=== PATIENT | male | born 1990 | race American Indian/Alaskan Native ===

== ENCOUNTER 2016-10-05 13:00 | Emergency (ER) | payer MEDICAID ==
--- NOTE | 2016-10-05 13:38 | EDM.PDOC ---
ED HPI GENERAL MEDICAL PROBLEM - General Chief Complaint: Back Pain or Injury Stated Complaint: BACK PAIN, FELL FROM HORSE Time Seen by Provider: 10/05/16 13:17 Source of Information: Reports: Patient History Limitations: Reports: No Limitations - History of Present Illness INITIAL COMMENTS - FREE TEXT/NARRATIVE: 25-year-old male presents for evaluation and treatment of injuries sustained from a horse accident. Patient reports that the injuries occurred on . He states that he was bucked off a full-grown horse. He states that he landed on his neck and his occipital region of his head. He does not believe he lost consciousness but says he was "close to losing consciousness." Reports no syncopal episodes since the injury. He is currently complaining of neck pain, pain to his mid and lower back. Also reports periodic numbness and tingling to the right hand that resolves with opening and closing the hand. He reports that he had some visual disturbances initially after being bucked off but denies any current headaches, nausea, vomiting, blurry vision, double vision, chest pain, shortness of breath, abdominal pain, lightheadedness or dizziness or syncope. Patient is currently complaining of neck pain, thoracic and lumbar spine pain. trauma alert minor called due to time period since injury and patient was able to walk in. cervical collar applies immediately upon my inspection. Middle Back Pain Score (Numeric/FACES): 8 - Related Data Allergies Allergy/AdvReac Type Severity Reaction Status Date / Time No Known Allergies Allergy Verified 10/05/16 13:13 Home Meds: Home Meds oxyCODONE HCl/Acetaminophen [Percocet 5-325 mg Tablet] 1 each PO Q6HR PRN #20 tablet 10/05/16 [Rx] Past Medical History - Past Health History Medical/Surgical History: Denies Medical/Surgical History Social & Family History - Tobacco Use Smoking Status *Q: Current Every Day Smoker Years of Tobacco use: 5 Packs/Tins Daily: 0.5 - Recreational Drug Use Recreational Drug Use: No Review of Systems - Review of Systems Review Of Systems: See Below Eyes: Denies: Blurred Vision, Vision Change Respiratory: Denies: Shortness of Breath Cardiovascular: Denies: Chest Pain GI/Abdominal: Denies: Abdominal Pain Musculoskeletal: Reports: Neck Pain (lateral ), Back Pain (mid to lower back) Neurological: Reports: Numbness (right hand), Tingling (right hand). Denies: Headache, Syncope, Difficulty Walking ED EXAM, GENERAL - Physical Exam Exam: See Below Exam Limited By: No Limitations General Appearance: Alert, WD/WN, No Apparent Distress Eye Exam: Bilateral Eye: EOMI, PERRL Ears: Normal External Exam Nose: Normal Inspection, No Blood Throat/Mouth: Normal Inspection, Normal Voice, No Airway Compromise Head: Atraumatic, Normocephalic Neck: Normal Inspection, Tender Lateral (bilateral), Other (c collar applied upon my evaluation) Respiratory/Chest: No Respiratory Distress, Lungs Clear, Normal Breath Sounds Cardiovascular: Normal Peripheral Pulses, Regular Rate, Rhythm, No Murmur Peripheral Pulses: 2+: Radial (L), Radial (R), Posterior Tibial (L), Posterior Tibial (R), Dorsalis Pedis (L), Dorsalis Pedis (R) GI/Abdominal: Normal Bowel Sounds, Soft, Non-Tender Back Exam: Normal Inspection, Vertebral Tenderness (t4-t9) Extremities: Normal Inspection, Normal Range of Motion, Non-Tender, Normal Capillary Refill Neurological: Alert, Oriented, CN II-XII Intact, Normal Cognition, Normal Gait, No Motor/Sensory Deficits, Other (GCS 15) Psychiatric: Normal Affect, Normal Mood Skin Exam: Warm, Dry, Normal Color Course - Vital Signs Last Recorded V/S: Last Vital Signs Temp 36.5 C 10/05/16 13:13 Pulse 76 10/05/16 17:35 Resp 16 10/05/16 17:35 BP 136/75 10/05/16 17:35 Pulse Ox 98 10/05/16 17:35 - Orders/Labs/Meds Orders: Active Orders 24 hr Category Date Time Status Cervical Spine wo Cont [CT] Stat Exams 10/05/16 13:31 Taken Chest Abdomen Pelvis w Cont [CT] Stat Exams 10/05/16 13:31 Taken Head wo Cont [CT] Stat Exams 10/05/16 13:31 Taken Lumbar Spine wo Cont [CT] Stat Exams 10/05/16 13:31 Taken Thoracic Spine wo Cont [CT] Stat Exams 10/05/16 13:31 Taken Labs: Laboratory Tests 10/05/16 10/05/16 10/05/16 Range/Units 15:00 15:00 15:00 WBC 7.48 (4.23-9.07) K/mm3 RBC 4.72 (4.63-6.08) M/mm3 Hgb 15.6 (13.7-17.5) gm/L Hct 44.9 (40.1-51.0) % MCV 95.1 H (79.0-92.2) fl MCH 33.1 H (25.7-32.2) pg MCHC 34.7 (32.2-35.5) g/dl RDW Std Deviation 42.4 (35.1-43.9) fL Plt Count 196 (163-337) K/mm3 MPV 9.9 (9.4-12.3) fl Neut % (Auto) 51.5 (34.0-67.9) % Lymph % (Auto) 33.8 (21.8-53.1) % [place] % (Auto) 10.4 (5.3-12.2) % Eos % (Auto) 3.7 (0.8-7.0) Baso % (Auto) 0.5 (0.1-1.2) % Neut # (Auto) 3.84 (1.78-5.38) K/mm3 Lymph # (Auto) 2.53 (1.32-3.57) K/mm3 [place] # (Auto) 0.78 (0.30-0.82) K/mm3 Eos # (Auto) 0.28 (0.04-0.54) K/mm3 Baso # (Auto) 0.04 (0.01-0.08) K/mm3 PT 10.4 (8.0-13.0) SECONDS INR 0.96 APTT 31 (22-36) SECONDS Sodium 136 (136-145) mEq/L Potassium 3.8 (3.5-5.1) mEq/L Chloride 101 (98-107) mEq/L Carbon Dioxide 28 (21-32) mEq/L Anion Gap 10.8 (5-15) BUN 12 (7-18) mg/dL Creatinine 1.0 (0.7-1.3) mg/dL Est Cr Clr Drug Dosing 133.58 mL/min Estimated GFR (MDRD) > 60 (>60) mL/min BUN/Creatinine Ratio 12.0 L (14-18) Glucose 109 H (74-106) mg/dL Calcium 8.3 L (8.5-10.1) mg/dL Total Bilirubin 0.5 (0.2-1.0) mg/dL AST 35 (15-37) U/L ALT 43 (16-63) U/L Alkaline Phosphatase 92 (46-116) U/L Total Protein 7.0 (6.4-8.2) g/dl Albumin 3.7 (3.4-5.0) g/dl Globulin 3.3 gm/dL Albumin/Globulin Ratio 1.1 (1-2) Meds: Medications Discontinued Medications Generic Name Dose Route Start Last Admin Trade Name Freq PRN Reason Stop Dose Admin Iopamidol 125 ml 10/05/16 14:05 10/05/16 14:34 Isovue-300 (61%) IVPUSH 10/05/16 14:06 125 ml ONETIME ONE Administration Oxycodone/Acetaminophen 1 tab 10/05/16 14:54 10/05/16 15:01 Percocet 325-5 Mg PO 10/05/16 14:55 1 tab ONETIME ONE Administration Sodium Chloride 10 ml 10/05/16 14:05 10/05/16 14:34 Saline Flush FLUSH 10 ml ONETIME PRN Administration IV FLUSH - Radiology Interpretation Free Text/Narrative:: CT of the head without contrast impression per [facility]: Small left epidural hematoma near the coronal suture and frontal parietal area. The hematoma measures about 15mm in AP diameter by about 5mm in width. There is no associated mass effect or midline shift. 2. Left scalp hematoma overlying the epidural hematoma. These is no associated skull fracture. Ct of the cervical spine without contrast impression per [facility]: no acute findings. CT of the thoracic spine without contrast impression per [facility]: spinous process fractures T5-T7 CT of the lumbar spine without contrast impression per [facility]: No evidence for acute posttraumatic abnormality spondylotis with mild stenosis L1-l2. No evidence for fractrure. CT of the abdomen and pelvis with IV contrast impression per [facility]: No evidence of acute postraumatic abnormality in the abdomen or pelvis. CT of the chest wih IV contrast impression per [facility]: Spinous process fractures T5-T7. No additional acute fractures seen. CT Results Date: 10/05/16 - Re-Assessments/Exams Free Text/Narrative Re-Assessment/Exam: 10/05/14 16:55 C-collar removed around 16:00 after clearance from radiology reports. I spoke with Dr. Del Rosario, neurosurgery at [facility] in [place]. He was unable to see the CTs during our conservation. He will evaluate the images and notify me of any concerns. Given he is 2 days out from the injury felt the bleed had likely subsided and would likely require a follow-up CT scan in one week. Did not feel transfer was likely necessary. 10/05/16 17:[address] Del Rosario, neurosurgery at [facility] in [place]. He has reviewed the images. No transfer necessary. Recommended follow-up CT in one week. No running, strenout activity, etc x one week. No NSAIDS, aspinin, ibuprofen, etc. Narcotics for thoracic spine fractures. Back brace as tolerated to reduce movement and help the spinout fractures heal. I discussed my conservation with Dr. Del Rosario with the patient. It is my preference he be admitted to the hospital for observation. The patient [place] about [place] away near [facility]. He states he cannot do that. He is and 4 children and one of them is disabled. He is hesitant to even take off work. I will have him follow-up in clinic this week for a repeat CT scan and a check of his symptoms. Plan will be to discharge home. He was warned of warning signs and instructed to return to the ER immediately should he experience any of these. Percocet for the spinous process fractures, back brace from [employer], follow-up friday. No work. 10/05/16 18:10 Phone numbers for [facility]: land line [phone]; cell [phone] Departure - Departure Time of Disposition: 17:34 Disposition: Home, Self-Care 01 Condition: Fair Clinical Impression: Epidural hematoma Fracture of spinous process of thoracic vertebra Qualifiers: Encounter type: initial encounter Fracture type: closed Qualified Code(s): S22.008A - Other fracture of unspecified thoracic vertebra, initial encounter for closed fracture - Discharge Information Prescriptions: oxyCODONE HCl/Acetaminophen [Percocet 5-325 mg Tablet] 1 each PO Q6HR PRN #20 tablet PRN Reason: Pain Instructions: Hematoma, [id number] Referrals: PCP,None [Primary Care Provider] - Jose Alfredo Tineo PA-C [Physician [employer]] - Forms: ED Department Discharge, Return to Work/School Form Additional Instructions: You were given medication in the ER that can affect your ability to drive and operate machinery. No driving or operating machinery within taking 12 hours of narcotic pain medication. Call [phone] on Friday to schedule an outpatient CT of the head without contrast and a follow-up appointment with family medicine. Recommend Dr. Colby or Jose Alfredo Tineo PA-C. An outpatient order has been provided for you to have this CT. No ibuprofen, aspirin, NSAIDs until further notice. note given for work. No work until cleared by family med. No running, strenuous activity, etc. until cleared by family medicine. Rest and take it easy. 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 Try [employer] for the [employer], [employer] or [employer]. Percocet 1 tab every 4-6 hours as needed for severe pain. may take over-the- counter Tylenol as needed for less severe pain. Do not take more than 4 g of Tylenol from all sources in [address] or operate machinery within 12 hours of taking Percocet. Percocet can be habit-forming, I recommend you take as few of these as needed to control your pain. Please return to the ER immediately if your symptoms change or worsen. In particular we would like to see you back immediately for seizures, headaches, vomiting, vision changes, change in demeanor, speech or gait, or any other concerning symptom. - My Orders Last 24 Hours: My Active Orders 10/05/16 13:31 Cervical Spine wo Cont [CT] Stat Chest Abdomen Pelvis w Cont [CT] Stat Head wo Cont [CT] Stat Lumbar Spine wo Cont [CT] Stat Thoracic Spine wo Cont [CT] Stat - Assessment/Plan Last 24 Hours: My Active Orders 10/05/16 13:31 Cervical Spine wo Cont [CT] Stat Chest Abdomen Pelvis w Cont [CT] Stat Head wo Cont [CT] Stat Lumbar Spine wo Cont [CT] Stat Thoracic Spine wo Cont [CT] Stat
[2016-10-05] MEDS ORDERED: Sodium Chloride 0.9% 10 ML Syringe FLUSH PRN (14:05)
[2016-10-05] MEDS ORDERED: Iopamidol 612 MG/ML 150 ML Bottle IVPUSH ONE (14:05)
[2016-10-05] MEDS ORDERED: Acetaminophen/oxyCODONE 325-5 MG Tab PO ONE (14:54)
[2016-10-05 17:36] VITALS: BP 136/75
--- NOTE | 2016-10-06 15:28 | CT ---
Head CT Technique: Multiple axial sections through the brain were obtained. Intravenous contrast was not utilized. Findings: Ventricles along with basal cisterns and sulci over the convexities are within normal limits for the patient's age. Minimal extra-axial soft tissue density is seen at the junction of the posterior frontal and anterior parietal region. Difficult to exclude a very minimal epidural hematoma measuring about 1.5 x 5 mm. No other abnormal parenchymal densities are seen. No other findings of intracranial hemorrhage. No midline shift or mass effect is seen. Minimal scalp hematoma is also seen at the frontal parietal junction on the left side. Bone window settings were reviewed which show no acute calvarial abnormality. Visualized sinuses are clear. Impression: 1. Equivocal findings for very minimal epidural hematoma at the junction of the left frontal parietal region. 2. Small scalp hematoma on the left side. 3. No additional abnormality is identified on noncontrast head CT exam. Diagnostic code #5 I agree with preliminary report issued by [facility] ([facility] report finalized on 10/05/16, 4:28 PM Central Time)
--- NOTE | 2016-10-06 15:53 | CT ---
CT cervical spine Technique: Multiple axial sections were obtained from above C1 inferiorly to the bottom of T2. Reconstructed sagittal and coronal images were reviewed. Comparison: No previous study. Findings: Mastoid sinuses and middle ear cavities are clear. Posterior skull base is intact. Vertebral body heights and disc spaces are maintained. Detached bony density which appears old is seen off the tip of the spinous process of C7. No acute fracture is seen. No bony central or bony neural foraminal stenosis is seen. No abnormal subluxation is seen on the reconstructed sagittal images. Impression: 1. Incidental finding as noted above. 2. No acute abnormality is identified on CT study of the cervical spine. Diagnostic code #2 I agree with preliminary report issued by [facility] ([facility] report finalized on 10/05/16, 4:38 PM Central Time)
--- NOTE | 2016-10-06 15:53 | CT ---
CT lumbar spine Technique: Multiple axial sections through the lumbar spine were obtained. Comparison: No previous study. Findings: Mild disc space narrowing is noted at L1-L2 with slight posterior spurring. Slight circumferential disc bulge is seen at L1-L2 with minimal central canal stenosis being seen. Minimal circumferential disc bulge and slight disc space narrowing is also seen at L3-L4. Minimal circumferential disc bulge is noted at L4-L5. No bony fracture is seen. No abnormal subluxation is seen. Impression: 1. Slight disc bulging as noted above. Minimal central canal stenosis noted at L1-L2. 2. Nothing acute is seen on CT study of the lumbar spine. Diagnostic code #2 I agree with preliminary report issued by [facility] ([facility] report finalized on 10/05/16, 4:04 PM Central Time)
--- NOTE | 2016-10-06 15:53 | CT ---
CT thoracic spine Technique: Multiple axial sections through the thoracic spine were obtained. Reconstructed coronal and sagittal images were reviewed. Findings: Spinous process fractures are seen within T5, T6 and T7. Overlying soft tissue hematoma is seen. Vertebral bodies and posterior arches are otherwise intact without additional fracture being seen. Minimal developmental disc space narrowing is scattered within the thoracic spine. No central or neural foraminal stenosis is seen. Impression: 1. Spinous process fractures of T5-T7. Overlying soft tissue hematoma seen within the back. 2. No other acute abnormality is seen. Diagnostic code #3 I agree with preliminary report issued by [facility] ([facility] report finalized on 10/05/16, 3:58 PM Central Time)
--- NOTE | 2016-10-06 15:54 | CT ---
CT chest Technique: Multiple axial sections through the chest were obtained. Intravenous contrast was utilized. Comparison: No previous chest CT. Findings: No pericardial thickening is seen. Mediastinum and hilar regions are unremarkable. No axillary adenopathy is seen. Lungs are clear. No pleural effusions or pulmonary contusion is seen. Bone window settings were reviewed which show spinous process fractures of T5, T6 and T7. No rib fracture is identified. Impression: 1. Spinous process fractures of T5-T7. 2. No additional abnormality is identified on CT study of the chest. Diagnostic code #3 I agree with preliminary report issued by [facility] ([facility] report finalized on 10/05/16, 4:09 PM Central Time) CT abdomen and pelvis Technique: Multiple axial sections were obtained from above the dome of the diaphragm inferiorly through the pubic symphysis. Intravenous contrast was utilized. No oral contrast has been given. Delayed images were obtained through the bladder. Findings: Liver shows no focal parenchymal abnormality. Spleen appears within normal limits. Adrenal glands show no nodule. Kidneys show symmetric contrast enhancement and appear within normal limits. Pancreas is within normal limits. Gallbladder shows no calcified gallstones. Appendix is seen which appears normal. Aorta shows no aneurysmal dilatation. No retroperitoneal adenopathy or mesenteric abnormalities are seen. Minimal fat-containing umbilical hernia is incidentally noted. No pelvic mass or adenopathy is seen. Delayed images shows contrast within the distal ureters and bladder. Bone window settings were reviewed which shows no hip fracture. No fracture is appreciated within the pelvis. Impression: 1. Incidental findings. Nothing acute is identified on CT study of the abdomen and pelvis. Diagnostic code #2 I agree with preliminary report issued by [facility] ([facility] report finalized on 10/05/16, 4:10 PM Central Time)
== END 2016-10-05 17:50 | disposition home or self-care (01) ==
LOC: JD.ED 13:00
DX: S06.4X9A Epidural hemorrhage with loss of consciousness of unspecified duration, initial encounter (principal); S22.059A Unspecified fracture of T5-T6 vertebra, initial encounter for closed fracture; F17.210 Nicotine dependence, cigarettes, uncomplicated; V80.010A Animal-rider injured by fall from or being thrown from horse in noncollision accident, initial encounter
CPT/HCPCS: 36415; 70450; 71260; 72125; 72128; 72131; 74177; 80053; 85025; 85610; 85730; 99284; A9270; J7050; Q9967